=== PATIENT | male | born 1980 | race Caucasian/White ===

== ENCOUNTER 2016-07-27 16:46 | Emergency (ER) | payer SELFPAY ==
--- NOTE | 2016-07-27 18:10 | UC ---
Lower Extremity/Ankle HPI - HPI Summary HPI Summary: left foot and great toe pain started yesterday without any known injury. started suddenly. It is red, painful and swollen adn warm to touch. He has been drinking over the past 2 weeks. also red meat. States his BP is always this high. Here with his friend. Denies fever. He is not on BP meds. His doctor retired. - History of Current Complaint Chief Complaint: UCLowerExtremity Stated Complaint: LEFT FOOT INJURYC Time Seen by Provider: 07/27/16 18:09 - Allergies/Home Medications Allergies/Adverse Reactions: Allergies Allergy/AdvReac Type Severity Reaction Status Date / Time Codeine Allergy Intermediate Swelling Verified 07/27/16 17:09 PMH/Surg Hx/FS Hx/Imm Hx Previously Healthy: Yes Endocrine History Of: Denies: Diabetes, Thyroid Disease Cardiovascular History Of: Denies: Cardiac Disorders, Hypertension, Pacemaker/ICD Respiratory History Of: Reports: Asthma Denies: COPD GI/ History Of: Denies: Ulcer - Surgical History Surgical History: Yes Surgery Procedure, Year, and Place: Appy 1986. left knee 1999 - Family History Known Family History: Positive: Cardiac Disease, Diabetes - Social History Alcohol Use: Occasionally Substance Use Type: None Substance Use Comment - Amount & Last Used: Unidentified mushrooms Smoking Status (MU): Former Smoker Type: Cigarettes, Smokeless Tobacco Amount Used/How Often: chews 1 can a week Have You Smoked in the Last Year: No When Did the Patient Quit Smoking/Using Tobacco: cigarettes June 24, 2012 - Immunization History Most Recent Tetanus Shot: 2012 Review of Systems Constitutional: Negative Skin: Negative Eyes: Negative ENT: Negative Respiratory: Negative Cardiovascular: Negative Gastrointestinal: Negative Genitourinary: Negative Motor: Other - left great toe pain Neurovascular: Negative Musculoskeletal: Negative Neurological: Negative Psychological: Negative All Other Systems Reviewed And Are Negative: Yes Physical Exam Triage Information Reviewed: Yes Appearance: Well-Appearing, Well-Nourished Vital Signs: Initial Vital Signs Temp 98.1 F 07/27/16 17:03 Pulse 96 07/27/16 17:03 Resp 16 07/27/16 17:03 BP 153/94 07/27/16 17:03 Pulse Ox 98 07/27/16 17:03 Vital Signs Reviewed: Yes Eye Exam: Normal ENT Exam: Normal Neck exam: Normal Respiratory Exam: Normal Respiratory: Positive: Lungs clear, Normal breath sounds Cardiovascular Exam: Normal Cardiovascular: Positive: RRR, No Murmur, Pulses Normal, Brisk Capillary Refill Abdominal Exam: Normal Abdomen Description: Positive: Nontender Musculoskeletal: Positive: Other: - left great toe - red, hot, swollen and tender Neurological Exam: Normal Psychological Exam: Normal Skin Exam: Normal Lower Extremity Course/Dx - Course Course Of Treatment: BP improved on rpt. Avoid nsaids other than today's treatment which is given bc pharmacies are closed and this is best medication for management that we have on formulary here. Discussed that he should be evaluated for BP management. Explained gout and how it should be managed. If he gets frequent attacks, he should consider daily medicine such as a XO inhibitor. - Differential Dx/Diagnosis Differential Diagnosis/HQI/PQRI: Cellulitis, Gout, Infection, Sprain, Strain Provider Diagnoses: left great toe acute gout Discharge - Discharge Plan Condition: Stable Disposition: HOME Prescriptions: Colchicine* [Colcrys*] 0.6 mg PO DAILY #10 tab Patient Education Materials: Gout (ED) Referrals: No Primary Care Phys,NOPCP [Primary Care Provider] - Additional Instructions: You have been given 600mgs ibuprofen here. Colcrys prescription to start tomorrow as we don't have any available here to give you and pharmacies are closed currently. Avoid alcohol and red meat. If you blood pressure is normally > 140/90 as you say that it is, you hae hypertension and should be treated by your primary crae physician for this to avoid complications of uncontrolled hypertension such as strokes, heart attacks, kidney disease, impotence, eye disease amongst others. We have given you a list of primary care physicians to follow up with since you state that your doctor has retired.
[2016-07-27 18:18] VITALS: BP 148/88
[2016-07-27] MEDS ORDERED: Ibuprofen TAB* 600 MG PO ONE (18:24)
== END 2016-07-27 18:37 | disposition home or self-care (01) ==
LOC: UCCORT 16:46
DX: M10.072 Idiopathic gout, left ankle and foot (principal); Z88.5 Allergy status to narcotic agent; F17.220 Nicotine dependence, chewing tobacco, uncomplicated
CPT/HCPCS: 99212; A9270-GY; G0463

== ENCOUNTER 2017-02-07 17:59 | Emergency (ER) | payer OTHER ==
[2017-02-07 19:55] VITALS: BP 199/104
--- NOTE | 2017-03-01 16:29 | UC ---
Estefany Delgado Rebecca, scribed for Michelle Mae DO on 02/07/17 at 1919 . Abdominal Pain Male HPI - HPI Summary HPI Summary: Pt is a 39 y/o M who presents to [facility] c/o periumbilical abdominal pain. Pain has been intermittent since 2 months ago. Today he bent over and lifted something up which made the pain significantly worse. Currently, pain is moderate, ranked 6/10. Treated with 1000 mg Ibuprofen today at 1200 and again at 1400. Sx aggravated by palpation, turning to the left and eating, alleviated by nothing. Additionally c/o vomiting secondary to pain and diarrhea. Notes that the region of pain, superior to the navel, is soft, starting about 1 month ago. Denies fever, chills, diaphoresis, CP, SOB and rash. Pt presents today due to concerns of hernia. Last ate at about 1900. - History of Current Complaint Chief Complaint: UCAbdominalPain Stated Complaint: SORE STOMACH Time Seen by Provider: 02/07/17 19:10 Hx Obtained From: Patient Onset/Duration: Lasting Weeks, Still Present Severity Currently: Moderate Pain Intensity: 6 Pain Scale Used: 0-10 Numeric Location: Other - Periumbilical Aggravating Factor(s): Food, Other - Turning to the left, palpation Alleviating Factor(s): Nothing Associated Signs And Symptoms: Positive: Vomiting, Diarrhea - Allergies/Home Medications Allergies/Adverse Reactions: Allergies Allergy/AdvReac Type Severity Reaction Status Date / Time Codeine Allergy Intermediate Swelling Verified 02/07/17 18:34 Home Medications: Home Medications Ibuprofen TAB* [Advil TAB*] 1,000 mg PO PRN 02/07/17 [History] PMH/Surg Hx/FS Hx/Imm Hx - Additional Past Medical History Additional PMH: NEGATIVE: DM, COPD, HTN Respiratory History: Asthma - Surgical History Surgical History: Yes Surgery Procedure, Year, and Place: Appy 1986. left knee 1999 - Family History Known Family History: Positive: Cardiac Disease, Diabetes, Other - unable to obtain information due to patient distress and AMS - Social History Alcohol Use: None Substance Use Type: None Substance Use Comment - Amount & Last Used: Unidentified mushrooms Smoking Status (MU): Former Smoker Type: Cigarettes, Smokeless Tobacco Amount Used/How Often: chews 1 can a week Have You Smoked in the Last Year: No When Did the Patient Quit Smoking/Using Tobacco: cigarettes June 24, 2012 - Immunization History Most Recent Tetanus Shot: 2012 Review of Systems Constitutional: Negative Skin: Negative Eyes: Negative ENT: Negative Respiratory: Negative Cardiovascular: Negative Gastrointestinal: Abdominal Pain - Periumbilical, Vomiting - secondary to pain, Diarrhea, Other - Soft spot above the navel Genitourinary: Negative Motor: Negative Neurovascular: Negative Musculoskeletal: Negative Neurological: Negative Psychological: Negative All Other Systems Reviewed And Are Negative: Yes - Comments Additional Review of Systems Comments: NEGATIVE: Fever, chills, diaphoresis, CP, SOB and rash Physical Exam Triage Information Reviewed: Yes Vital Signs: Initial Vital Signs Temp 99.3 F 02/07/17 18:29 Pulse 99 02/07/17 18:29 Resp 20 02/07/17 18:29 BP 153/90 02/07/17 18:29 Pulse Ox 97 02/07/17 18:29 Vital Signs Reviewed: Yes - Additional Comments Appearance: Well-Appearing, Obese, Malodorous, Moderate pain distress that is worsened by upright posture and alleviated by reclining Eyes: Conjunctiva clear, no discharge ENT: Hearing grossly normal, no muffled/hoarse voice. Neck: Normal, Supple Respiratory/Lung Sounds: Lungs clear, Normal breath sounds, No respiratory distress, No accessory muscle use Cardiovascular: Tachycardic, No murmur Abdomen: Pt has a 3 cm pouch protruding from his navel that is soft and tender, Soft, no guarding, not distended Bowel Sounds: Present Musculoskeletal: Normal Neurological: Alert, muscle tone normal Psychiatric: Normal, age appropriate behavior Skin: Normal, Warm, Dry, Normal color Abd Pain Male Course/Dx - Course Course Of Treatment: Pt is a 39 y/o M who presents to [facility] c/o periumbilical abdominal pain, intermittent for 2 months, significantly worse today after bending down and lifting something. Currently, pain is moderate, ranked 6/10. Treated with 1000 mg Ibuprofen today at 1200 and again at 1400. Sx aggravated by palpation, turning to the left and eating. Additionally c/o vomiting secondary to pain and diarrhea. Notes that the region of pain, superior to the navel, is soft, starting about 1 month ago. Denies fever, chills, diaphoresis, CP, SOB and rash. Pt presents today due to concerns of hernia. Last ate at about 1900. Pt will be transferred to [facility] ED by [place] [facility] for further workup and management of symptoms with Dx of hernia. Pt understands and agrees. Elevated BP noted. - Differential Dx/Clinical Impression Provider Diagnoses: Hernia. Elevated blood pressure without diagnosis of hypertension. Discharge - Discharge Plan Condition: Stable Disposition: TRANS HIGHER LVL OF CARE FAC Referrals: No Primary Care Phys,NOPCP [Primary Care Provider] - The documentation as recorded by the Estefany rasheed Rebecca accurately reflects the service I personally performed and the decisions made by , Michelle Mae DO.
== END 2017-02-07 19:45 | disposition short-term general hospital (02) ==
LOC: UCEAST 17:59
DX: K42.9 Umbilical hernia without obstruction or gangrene (principal); K40.90 Unilateral inguinal hernia, without obstruction or gangrene, not specified as recurrent; K76.0 Fatty (change of) liver, not elsewhere classified; R16.0 Hepatomegaly, not elsewhere classified; R11.10 Vomiting, unspecified; R19.7 Diarrhea, unspecified; J45.909 Unspecified asthma, uncomplicated; Z88.5 Allergy status to narcotic agent; F17.220 Nicotine dependence, chewing tobacco, uncomplicated
CPT/HCPCS: 99213; G0463

== ENCOUNTER → 2017-02-07 20:05 | Emergency (ER) | payer OTHER ==
[~2017-02-07 20:05] MED LIST: Iohexol 300* (CONTRAST) 10 ML SDV IV ONE; Morphine INJ* 4 MG/ML 1 ML CARPUJECT IV ONE; NS 0.9% 1000 ML* 1,000 ML IV ONE; Ondansetron INJ* 2 MG/ML VIAL IV ONE; oxyCODONE/Acetamin 5/325 MG* TAB PO ONE
[2017-02-07 20:14] VITALS: BP 172/96
[2017-02-07 20:59] LABS: Hematocrit 43 % (42-52); Hemoglobin 14.5 g/dl (14.0-18.0); Mean Corpuscular HGB Conc 34 g/dl (31-36); Mean Corpuscular Hemoglobin 28 pg (27-31); Mean Corpuscular Volume 83 fL (80-94); Mean Platelet Volume 8 um3 (7.4-10.4); Red Blood Count 5.18 10^6/ul (4.0-5.4); Red Cell Distribution Width 13 % (10.5-15); White Blood Count 7.7 10^3/ul (3.5-10.8)
[2017-02-07 21:15] LABS: Albumin 4.1 g/dL (3.2-5.2); BUN/Creatinine Ratio 18.6 (8-20); C Reactive Protein 4.11 mg/L (< 5.00); Calcium 9.1 mg/dL (8.6-10.3); EGFR African American 112.6 (>60); EGFR Non-African American 87.6 (>60); Globulin 2.9 g/dL (2-4); Potassium 3.7 mmol/L (3.5-5.0); Total Bilirubin 0.3 mg/dL (0.2-1.0)
--- NOTE | 2017-02-08 07:44 | RAD ---
CLINICAL HISTORY: Periumbilical pain, hernia pain COMPARISON: None TECHNIQUE: Multiple contiguous axial CT scans were obtained of the abdomen and pelvis after the administration of intravenous contrast. Coronal and sagittal multiplanar reformations are submitted for review. Oral contrast was administered. Delayed images were obtained through the abdomen and pelvis. FINDINGS: LUNG BASES: The lung bases are clear. LIVER: The liver is diffusely low in attenuation compared to the spleen. There are no focal hepatic parenchymal masses. The liver measures 20.8 cm in long axis. BILE DUCTS: There is no intrahepatic or extrahepatic biliary dilatation. GALLBLADDER: The gallbladder is normal, without pericholecystic inflammatory change. PANCREAS: The pancreas is normal, without mass or ductal dilatation. SPLEEN: Normal in size and appearance. UPPER GI TRACT: Evaluation of the gastrointestinal tract is limited by incomplete gastric distention. The upper GI tract is unremarkable. SMALL BOWEL AND MESENTERY: The small bowel is normal in contour, course, and caliber. There is no obstruction or dilatation. COLON: The colon is normal in contour, course, caliber. There is no pericolonic inflammatory change. The appendix is not clearly visualized. There is no appreciable inflammatory change in the right lower quadrant. ADRENALS: Normal bilaterally. KIDNEYS: The kidneys are normal in shape, size, contour, and axis. There is no hydronephrosis or nephrolithiasis. BLADDER: The bladder is incompletely distended but is grossly normal. PELVIC ORGANS: The prostate gland is normal. The seminal vesicles are symmetric. AORTA: The aorta is normal. IVC: Unremarkable LYMPH NODES: There is no lymphadenopathy by size criteria. ABDOMINAL WALL: There is a fat-containing umbilical hernia. There is a small fat-containing left inguinal hernia. BONES AND SOFT TISSUES: There are mild diffuse degenerative changes. OTHER: None IMPRESSION: 1. FAT-CONTAINING UMBILICAL HERNIA. 2. SMALL FAT-CONTAINING LEFT INGUINAL HERNIA. 3. HEPATOMEGALY WITH FATTY INFILTRATION OF THE LIVER
--- NOTE | 2017-02-13 12:49 | ED ---
Jovanni Delgado Nilda, scribed for Michael Russell MD on 02/08/17 at 0012 . Abdominal Pain/Male - HPI Summary HPI Summary: Patient is a 36 y.o. M BIBA presenting to [facility] with a chief complain of intermittent abdominal pain from umbilical hernia that began this morning. Pain rated 6/10 in severity. Symptoms aggravated by movement and palpation. Symptoms alleviated with pain medication given in ED. - History of Current Complaint Chief Complaint: EDAbdPain Stated Complaint: XFER FROM EAST Time Seen by Provider: 02/07/17 20:29 Hx Obtained From: Patient Timing: Intermittent Severity Currently: Moderate Pain Intensity: 6 Pain Scale Used: 0-10 Numeric Location: Umbilical Aggravating Factor(s): Movement, Other: - palpation Alleviating Factor(s): Medications - Allergies/Home Medications Allergies/Adverse Reactions: Allergies Allergy/AdvReac Type Severity Reaction Status Date / Time Codeine Allergy Intermediate Swelling Verified 02/07/17 18:34 PMH/Surg Hx/FS Hx/Imm Hx Endocrine/Hematology History: Denies: Hx Diabetes, Hx Thyroid Disease Cardiovascular History: Denies: Hx Hypertension, Hx Pacemaker/ICD Respiratory History: Reports: Hx Asthma Denies: Hx Chronic Obstructive Pulmonary Disease (COPD) GI History: Denies: Hx Ulcer Sensory History: Reports: Hx Contacts or Glasses Denies: Hx Hearing Aid Opthamlomology History: Reports: Hx Contacts or Glasses Psychiatric History: Denies: Hx Panic Disorder - Surgical History Surgery Procedure, Year, and Place: Appy 1986. left knee 1999 - Immunization History Date of Tetanus Vaccine: unknown Date of Influenza Vaccine: Infectious Disease History: No Infectious Disease History: Denies: Hx Clostridium Difficile, Hx Hepatitis, Hx Human Immunodeficiency Virus (HIV), Hx of Known/Suspected MRSA, Hx Shingles, Hx Tuberculosis, Hx Known/ Suspected VRE, Hx Known/Suspected VRSA, History Other Infectious Disease, Traveled Outside the [place] in Last 30 Days - Family History Known Family History: Positive: Cardiac Disease, Hypertension, Diabetes, Other - unable to obtain information due to patient distress and AMS - Social History Alcohol Use: None Substance Use Type: Reports: None Substance Use Comment - Amount & Last Used: Unidentified mushrooms Hx Tobacco Use: Yes Smoking Status (MU): Former Smoker Type: Cigarettes, Smokeless Tobacco Amount Used/How Often: chews 1 can a week Have You Smoked in the Last Year: No Review of Systems Negative: Fever, Chills Negative: Erythema Negative: Sore Throat Negative: Chest Pain Negative: Shortness Of Breath, Cough Positive: Abdominal Pain, Other - hernia. Negative: Vomiting, Nausea Negative: dysuria, hematuria Negative: Myalgia, Edema Negative: Rash Neurological: Other - negative dizziness All Other Systems Reviewed And Are Negative: Yes Physical Exam - Summary Physical Exam Summary: Constitutional: Well-developed, Well-nourished, Alert. Skin: Warm, Dry HENT: Normocephalic; Atraumatic Eyes: Conjunctiva normal Neck: Musculoskeletal ROM normal neck. (-) JVD, (-) Stridor, (-) Tracheal deviation Cardio: Rhythm regular, rate normal, Heart sounds normal; Intact distal pulses; The pedal pulses are 2+ and symmetric. Radial pulses are 2+ and symmetric. (-) Murmur Pulmonary/Chest wall: Effort normal. (-) Respiratory distress, (-) Wheezes, (-) Rales Abd: Morbidly obese belly, umbilical hernia that was protuberant. Soft. Mildly tender. No skin changes. Musculoskeletal: (-) Edema Lymph: (-) Cervical adenopathy Neuro: Alert, Oriented x3 Psych: Mood and affect Normal Triage Information Reviewed: Yes Vital Signs On Initial Exam: Initial Vitals Temp Pulse Resp BP Pulse Ox 99.3 F 102 17 170/96 98 02/07/17 20:07 02/07/17 20:07 02/07/17 20:07 02/07/17 20:07 02/07/17 20:07 Vital Signs Reviewed: Yes - Dierks Coma Scale Coma Scale Total: 15 Diagnostics - Vital Signs Vital Signs Temp Pulse Resp BP Pulse Ox 02/07/17 21:15 16 02/07/17 20:13 172/96 02/07/17 20:12 170/96 02/07/17 20:07 99.3 F 102 17 170/96 98 - Laboratory Lab Results: Lab Results 02/07/17 02/07/17 02/07/17 Range/Units 20:46 20:46 20:46 WBC 7.7 (3.5-10.8) 10^3/ul RBC 5.18 (4.0-5.4) 10^6/ul Hgb 14.5 (14.0-18.0) g/dl Hct 43 (42-52) % MCV 83 (80-94) fL MCH 28 (27-31) pg MCHC 34 (31-36) g/dl RDW 13 (10.5-15) % Plt Count 219 (150-450) 10^3/ul MPV 8 (7.4-10.4) um3 Neut % (Auto) 48.5 (38-83) % Lymph % (Auto) 39.8 (25-47) % Mingo % (Auto) 7.7 (1-9) % Eos % (Auto) 3.4 (0-6) % Baso % (Auto) 0.6 (0-2) % Absolute Neuts (auto) 3.7 (1.5-7.7) 10^3/ul Absolute Lymphs (auto) 3.0 (1.0-4.8) 10^3/ul Absolute Monos (auto) 0.6 (0-0.8) 10^3/ul Absolute Eos (auto) 0.3 (0-0.6) 10^3/ul Absolute Basos (auto) 0 (0-0.2) 10^3/ul Absolute Nucleated RBC 0 10^3/ul Nucleated RBC % 0.1 Sodium 135 (133-145) mmol/L Potassium 3.7 (3.5-5.0) mmol/L Chloride 102 (101-111) mmol/L Carbon Dioxide 25 (22-32) mmol/L Anion Gap 8 (2-11) mmol/L BUN 18 (6-24) mg/dL Creatinine 0.97 (0.67-1.17) mg/dL Est GFR ( Amer) 112.6 (>60) Est GFR (Non-Af Amer) 87.6 (>60) BUN/Creatinine Ratio 18.6 (8-20) Glucose 183 H (70-100) mg/dL Lactic Acid 1.7 (0.5-2.0) mmol/L Calcium 9.1 (8.6-10.3) mg/dL Total Bilirubin 0.30 (0.2-1.0) mg/dL AST 26 (13-39) U/L ALT 40 (7-52) U/L Alkaline Phosphatase 57 (34-104) U/L C-Reactive Protein 4.11 (< 5.00) mg/L Total Protein 7.0 (6.4-8.9) g/dL Albumin 4.1 (3.2-5.2) g/dL Globulin 2.9 (2-4) g/dL Albumin/Globulin Ratio 1.4 (1-3) Lipase 38 (11.0-82.0) U/L Result Diagrams: 02/07/17 20:46 02/07/17 20:46 Lab Statement: Any lab studies that have been ordered have been reviewed, and results considered in the medical decision making process. - CT Abdomen/Pelvis CT Interpretation Completed By: Radiologist - CT Abdominal/Pelvis reveals no bowel obstruction, colitis, diverticulitis, free fluid or free air. Appendix not seen. No pericecal inflammation to suggest acute appendicitis. Unremarkable pancreas, kidneys, and gallbladder. Hepatomegaly and steatosis. Small umbilical and left inguinal region hernias containing fat but no herniated bowel. ED physician reviewed report and agrees. Abdominal Pain Fem Course/Dx - Course Course Of Treatment: Patient is a 36 y.o. M BIBA presenting to [facility] with a chief complain of intermittent abdominal pain from umbilical hernia that began this morning. Pain rated 6/10 in severity. Symptoms aggravated by movement and palpation. Symptoms alleviated with pain medication given in ED. [23:37]ED discussed patient with Dr. Stahl (Shantanu) who recommends surgery this week and follow up with patient on 02/09/17. Patient has fat containing hernia which the ED Physician cannot presently reduce. CT Abdominal/Pelvis per radiologist reveals no bowel obstruction, colitis, diverticulitis, free fluid or free air. Appendix not seen. No pericecal inflammation to suggest acute appendicitis. Unremarkable pancreas, kidneys, and gallbladder. Hepatomegaly and steatosis. Small umbilical and left inguinal region hernias containing fat but no herniated bowel. ED physician reviewed report and agrees. Patient is discharged with a diagnosis of umbilical hernia. Patient will follow up with Dr. Stahl on Thursday. Patient understands and agrees with plan. - Diagnoses Provider Diagnoses: Umbilical hernia - Provider Notifications Discussed Care Of Patient With: Nestor Fournier Time Discussed With Above Provider: 23:37 Instructed by Provider To: Other - ED discussed patient with Dr. Stahl (Shantanu) who recommends surgery this week and follow up with patient on 02/09/17. Patient has fat containing hernia which the ED Physician cannot presently reduce. Discharge - Discharge Plan Condition: Stable Disposition: HOME Prescriptions: oxyCODONE/Acetamin 5/325 MG* [Percocet 5/325 TAB*] 2 tab PO Q4H PRN #16 tab MDD 8 PRN Reason: Pain - Moderate To Severe Patient Education Materials: Umbilical Hernia (ED) Referrals: Nestor Stahl MD [Medical Doctor] - 02/09/17 Additional Instructions: RETURN TO THE EMERGENCY DEPARTMENT FOR CHANGING OR WORSENING SYMPTOMS. The documentation as recorded by the Jovanni rasheed Nilda accurately reflects the service I personally performed and the decisions made by Drew celestin Jerry, MD.
== END | disposition home or self-care (01) ==
LOC: ED 20:05
DX: K42.9 Umbilical hernia without obstruction or gangrene (principal); R10.9 Unspecified abdominal pain; Z87.891 Personal history of nicotine dependence
CPT/HCPCS: 36415; 74177; 80053; 83605; 83690; 85025; 86140; 96374; 96375; 99282; A9270-GY; J2270; J2405; Q9967

== ENCOUNTER 2017-02-11 06:08 | Day surgery (SDC) | payer OTHER ==
[~2017-02-11 06:08] MED LIST changes: +Acetaminophen TAB* 325 MG PO ONE; +Buffered Lidocaine 0.9% SYRIN* 5 ML/SYR SYRINGE INTRADERM ONE; +Dexamethasone IV* 4 MG/ML 1 ML (4 MG) IV SLOW PU ONE; -Iohexol 300* (CONTRAST) 10 ML SDV IV ONE; +Metoclopramide IV* 5 MG/ML 2 ML VIAL IV SLOW PU ONE; -Morphine INJ* 4 MG/ML 1 ML CARPUJECT IV ONE; -NS 0.9% 1000 ML* 1,000 ML IV ONE; -Ondansetron INJ* 2 MG/ML VIAL IV ONE; -oxyCODONE/Acetamin 5/325 MG* TAB PO ONE
[2017-02-11] MEDS ORDERED: Acetaminophen TAB* 325 MG ONE (06:48)
[2017-02-11] MEDS ORDERED: Buffered Lidocaine 0.9% SYRIN* 5 ML/SYR SYRINGE ONE (06:48)
[2017-02-11] MEDS ORDERED: Metoclopramide IV* 5 MG/ML 2 ML VIAL ONE (06:48)
[2017-02-11] MEDS ORDERED: Dexamethasone IV* 4 MG/ML 1 ML (4 MG) ONE (06:48)
[2017-02-11] MEDS ORDERED: KETAMINE HCL* 50 MG/ML 10 ML VIAL ONE (06:52)
[2017-02-11] MEDS ORDERED: Midazolam* 1 MG/ML 5 ML VIAL (5 MG) ONE (06:52)
[2017-02-11] MEDS ORDERED: fentaNYL* 50 MCG/ML 2 ML VIAL (100 MCG VIAL) ONE ×2 (06:52→12:00)
[2017-02-11] MEDS ORDERED: Bupivacaine 0.5% SDV PF* 30 ML VIAL ONE (07:13)
[2017-02-11] MEDS ORDERED: Lidocaine 1% INJ* 10 MG/ML 30 ML SDV ONE (07:13)
[2017-02-11] MEDS ORDERED: Lidocaine 1% MPF wEPI 200,000* 30 ML SDV ONE (07:17)
[2017-02-11] MEDS ORDERED: HYDROmorphone INJ* 1 MG/ML CARPUJECT SYRINGE IV PRN (07:48)
[2017-02-11] MEDS ORDERED: Ibuprofen TAB* 600 MG PO PRN (07:48)
[2017-02-11] MEDS ORDERED: Ondansetron INJ* 2 MG/ML VIAL IV PRN (07:48)
[2017-02-11] MEDS ORDERED: ceFAZolin 2 GM PREMIX (*) 50 ML IVPB ONE (08:27)
[2017-02-11] MEDS ORDERED: ceFAZolin 1 GM ADVAN(*) 1 GM ADDV.VIAL IVPB ONE (08:27)
[2017-02-11] MEDS ORDERED: Midazolam* 1 MG/ML 2 ML VIAL (2 MG) ONE (09:49)
[2017-02-11] MEDS ORDERED: oxyCODONE TAB* 5 MG TAB ONE ×2 (10:19→12:00)
[2017-02-11] MEDS: oxyCODONE TAB* 5 MG TAB PO PRN ×2 (10:21→12:02)
[2017-02-11 11:59] VITALS: BP 141/84
[2017-02-11] MEDS: fentaNYL* 50 MCG/ML 2 ML VIAL (100 MCG VIAL) IV PRN ×2 (12:03→12:11)
--- NOTE | 2017-02-21 02:13 | OP ---
DATE OF OPERATION: 02/11/17 - [facility] DATE OF : 80 SURGEON: Mariusz Chung MD FLAKE DRIER: Elida Damico NP ANESTHESIOLOGIST: Dr. Shrestha. ANESTHESIA: Spinal. PRE-OP DIAGNOSIS: Umbilical hernia. POST-OP DIAGNOSIS: Umbilical hernia. OPERATIVE PROCEDURE: Open umbilical hernia repair with mesh. ESTIMATED BLOOD LOSS: Minimal. IV FLUIDS: Crystalloid. SPECIMEN: None. DRAINS: None. COMPLICATIONS: None. COUNTS: Instrument, needle and sponge count correct. DESCRIPTION OF PROCEDURE: The patient was brought to the operating room and placed on the table supine. Sequential compression devices were placed on both lower extremities. He was administered a spinal anesthetic and then positioned supine and his abdomen was prepped and draped in the usual sterile fashion. He received appropriate intravenous antibiotics. Time-out was performed. Local anesthetic was infiltrated into the periumbilical tissues and a curvilinear infraumbilical incision was made encompassing half the circumference of the umbilical region and then the umbilical stalk was elevated off the abdominal wall and incarcerated fat was identified within the umbilical hernia sac, which was subsequently excised and the edges ligated with 2-0 Polysorb ties. The hernia defect measured approximately 2 cm to 2.5 cm and repair was performed with the Bard umbilical hernia mesh using a circular medium size patch, which was placed to the peritoneal cavity and then drawn up through the defect. The mesh was sutured inferiorly and superiorly with interrupted 2-0 braided polyester sutures and then the defect was closed transversely with the same suture in interrupted figure-of- eight fashion. Umbilical stalk was reapproximated with 3-0 Vicryl to the anterior abdominal wall and skin closed with 4-0 Monocryl in subcuticular fashion. Steri- Strips were applied. The patient tolerated the procedure well and was transferred to Recovery in a stable condition. [id number]/[facility] #: [id number] MTDD
== END 2017-02-11 12:49 | disposition home or self-care (01) ==
LOC: OR 06:08
PROVIDERS: ATTEND Surgery
DX: K42.0 Umbilical hernia with obstruction, without gangrene (principal); E66.01 Morbid (severe) obesity due to excess calories; Z68.43 Body mass index [BMI] 50.0-59.9, adult; K40.90 Unilateral inguinal hernia, without obstruction or gangrene, not specified as recurrent; G47.33 Obstructive sleep apnea (adult) (pediatric); Z88.5 Allergy status to narcotic agent; Z87.891 Personal history of nicotine dependence
CPT/HCPCS: A9270-GY; C1781; J0690; J1100; J2001; J2250; J2765; J3010

== ENCOUNTER 2017-05-30 13:38 | Emergency (ER) | payer OTHER ==
[2017-05-30 14:09] VITALS: BP 147/91
[2017-05-30] MEDS ORDERED: Ketorolac INJ* 60 MG/2 ML VIAL IM ONE (15:53)
[2017-05-30] MEDS ORDERED: Cyclobenzaprine TAB* 10 MG PO ONE (15:54)
--- NOTE | 2017-05-30 16:00 | UC ---
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 Timing: Constant Severity Initially: Mild Severity Currently: Moderate Back Pain: Is Discrete @ - R lower back, Radiates To - upper legs Character: Throbbing, Stiffness Aggravating Factor(s): Movement Alleviating Factor(s): Rest, Cold Associated Signs And Symptoms: Negative: Weakness, Numbness, Tingling, Bladder Incontinence, Bowel Incontinence - Risk Factors Cauda Equina Risk Factors: Negative - Allergies/Home Medications Allergies/Adverse Reactions: Allergies Allergy/AdvReac Type Severity Reaction Status Date / Time Codeine Allergy Intermediate Hives Verified 02/11/17 06:55 Home Medications: Home Medications metFORMIN* [Glucophage 1000 MG TAB *] 1,000 mg PO 0800,1700 05/30/17 [History Confirmed 05/30/17] PMH/Surg Hx/FS Hx/Imm Hx Previously Healthy: Yes Endocrine History: Diabetes - Surgical History Surgical History: Yes Surgery Procedure, Year, and Place: APPENDECTOMY 1986 [place]. LEFT KNEE ARTHROSCOPY (REPAIR OF LIGAMENTS) 1999 [place] - Family History Known Family History: Positive: Cardiac Disease, Diabetes, Other - unable to obtain information due to patient distress and AMS - Social History Occupation: Employed Full-time Lives: With Family Alcohol Use: None Substance Use Type: None Substance Use Comment - Amount & Last Used: Unidentified mushrooms Smoking Status (MU): Former Smoker Type: Cigarettes Amount Used/How Often: 1 PPD FOR 16 YRS Length of Time of Smoking/Using Tobacco: 16 YRS Have You Smoked in the Last Year: No When Did the Patient Quit Smoking/Using Tobacco: 2012 - Immunization History Most Recent Tetanus Shot: 2013 Review of Systems Constitutional: Negative Respiratory: Negative Cardiovascular: Negative Psychological: Negative Is Patient Immunocompromised?: No All Other Systems Reviewed And Are Negative: Yes Physical Exam Triage Information Reviewed: Yes Appearance: Well-Appearing, Obese Vital Signs: Initial Vital Signs Temp 99.0 F 05/30/17 14:06 Pulse 105 05/30/17 14:06 Resp 18 05/30/17 14:06 BP 147/91 05/30/17 14:06 Pulse Ox 98 05/30/17 14:06 Vital Signs Reviewed: Yes Respiratory Exam: Normal Cardiovascular Exam: Normal Musculoskeletal: Positive: ROM Limited @ - low back Neurological Exam: Normal Psychological Exam: Normal Skin: Negative: rashes Back Pain Course/Dx - Differential Dx/Diagnosis Differential Diagnosis/HQI/PQRI: Cauda Equina Syndrome, Herniated Disc, Strain, Sprain Provider Diagnoses: low back strain Discharge - Discharge Plan Condition: Stable Disposition: HOME Prescriptions: Cyclobenzaprine TAB* [Flexeril 10 MG TAB*] 10 mg PO TID PRN #15 tab PRN Reason: Spasms - Back Patient Education Materials: Low Back Strain (ED) Forms: *Work Release Referrals: No Primary Care Phys,NOPCP [Primary Care Provider] - 2 Days (Dang if no better 2-3 days) Additional Instructions: use ibuprofen 600mg every 6 hours as needed for pain (over the counter) use muscle relaxer as prescribed rest apply heat or cold to area of pain
== END 2017-05-30 16:20 | disposition home or self-care (01) ==
LOC: UCEAST 13:38
DX: S39.012A Strain of muscle, fascia and tendon of lower back, initial encounter (principal); X58.XXXA Exposure to other specified factors, initial encounter; Y93.89 Activity, other specified; Y92.9 Unspecified place or not applicable; Y99.0 Civilian activity done for income or pay; Z88.5 Allergy status to narcotic agent; E11.9 Type 2 diabetes mellitus without complications; Z79.84 Long term (current) use of oral hypoglycemic drugs; E66.9 Obesity, unspecified; Z87.891 Personal history of nicotine dependence
CPT/HCPCS: 96372; 99212; A9270-GY; G0463; J1885

== ENCOUNTER 2017-07-27 11:07 | Emergency (ER) | payer OTHER ==
[2017-07-27] MEDS ORDERED: Naproxen TAB* 250 MG PO ONE (12:04)
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
--- NOTE | 2017-07-27 12:57 | RAD ---
INDICATION: Left wrist injury. TECHNIQUE: 3 views of the left wrist were obtained. FINDINGS: The bones are in normal alignment. No fracture is seen. Joint spaces appear maintained. IMPRESSION: NO EVIDENCE FOR FRACTURE, IF THE PATIENT'S SYMPTOMS PERSIST RECOMMEND FOLLOW-UP IMAGING.
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
[2017-07-27 14:44] VITALS: BP 150/99
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
--- NOTE | 2017-07-27 14:52 | RAD ---
Indication: Back pain, question compression fracture on prior x-ray. CT of the thoracic spine was obtained in the axial plane. Sagittal and coronal reconstructed images were obtained. The vertebral bodies appear normal in height. The area in question at the inferior anterior endplate of T8 demonstrates a Schmorl's node. There is no evidence of compression fracture. There is disc space narrowing with mild ventral osteophyte formation at T7-T8, T8-T9, T9-T10 and T10-T11. Degenerative disc disease at T3-T4 is also present. IMPRESSION: No fracture is noted. Degenerative disc disease at T8-T9 in the area of prior irregularity in the thoracic spine. Multilevel degenerative disc disease is noted.
== END 2017-07-27 15:23 | disposition home or self-care (01) ==
LOC: UCEAST 11:07
DX: M54.6 Pain in thoracic spine (principal); S63.502A Unspecified sprain of left wrist, initial encounter; V43.52XA Car driver injured in collision with other type car in traffic accident, initial encounter; Y93.89 Activity, other specified; Y92.410 Unspecified street and highway as the place of occurrence of the external cause; R03.0 Elevated blood-pressure reading, without diagnosis of hypertension; Z88.5 Allergy status to narcotic agent; Z87.891 Personal history of nicotine dependence
CPT/HCPCS: 72070; 72110; 72125; 72128; 99213; A9270-GY; G0463

== ENCOUNTER 2017-09-07 19:18 | Emergency (ER) | payer OTHER ==
--- OUTSIDE RECORDS SUMMARY | 2017-09-07 20:59 | XMS REPORT ---
:1980 External Reference #:[id number] Author Organization [employer] Address [address] [address] Phone [phone] Care Team Providers Name Role Phone Patient's Choice Primary Care Physician Unavailable Payers Type Date Identification Numbers Payment Provider Subscriber Commercial Policy Number: [id number] Gurmeet Delgado PayID: [id number] [address] [place] [address] Workers Compensation Onset: 2017 Policy Number: Chandana Tovar [id number] Danny PayID: [id number] [address] [place] [address] Problems Date Description Provider Status Onset: 08/11/2017 Low back pain Peytonsilmark Fowler MD Active Family History Date Family Member(s) Problem(s) Comments General Heart Disease General Diabetes Social History Type Date Description Comments Lives With Spouse 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 ETOH Use Occasionally consumes alcohol Smoking Patient is a former smoker Recreational Drug Use Denies Drug Use Daily Caffeine Does Not Consume Caffeine Exercise Type/Frequency Exercises regularly Allergies, Adverse Reactions, Alerts Date Description Reaction Status Severity Comments 06/21/2014 Codeine swelling active 06/21/2014 NKDA inactive Medications Medication Date Status Form Strength Qnty SIG Indications Ordering Provider Naproxen Active Tablets 500mg Take One Unknown 000 Tablet By Mouth Twice A Day No Active Hx Unknown Medications 018 - 018 Tramadol Hx Tablets 37.5-325mg 20tabs 1 tab by Mirlande Bran/ 018 - mouth Nerissa Sanford Acetaminophen every 6 018 hours as needed pain Sulfamethoxazo Hx Tablets 800-160mg 20tabs 1 by K42.9 Eren martel/Trimethopri 017 mouth maria eugenia Aburto DS twice a M.D. day Ibuprofen Hx Tablets 600mg 20tabs 1 by K42.9 Memo S. 017 mouth Kenia, every 6 MD hours as needed pain Naprosyn Hx Tablets 500mg 60tabs twice Mikhail 015 daily Ben, with M.D. food as needed Morphine Hx Tablets 15mg 1 by Unknown Sulfate 000 mouth twice a day Tramadol HCL Hx Tablets 50mg four Unknown 000 times a day as needed Oxycodone-Acet Hx Tablets 5-325mg 1-2 tabs Unknown aminophen 000 by mouth every 4-6 hours as needed for pain Allopurinol Hx Tablets 100mg Clifford Jiménez 000 - J, D.O. 018 Vitamin D3 Hx Capsules 1000Unit Unknown High Potency 000 - 018 Oxycodone-Acet Hx Tablets 5-325mg Clifford Jiménez aminophen 000 - J, D.O. 018 Medications Administered in Office Medication Date Status Form Strength Qnty SIG Indications Ordering Provider Depomedrol Administered Injection Denise 80MG 015 DAVID Clark Vital Signs Date Vital Result Comment 09/02/2017 Height 65 inches 5'5" Weight 296.00 lb Heart Rate 76 /min Respiratory Rate 15 /min Pain Level 2 BMI (Body Mass Index) 49.3 kg/m2 08/25/2017 Height 65 inches 5'5" Weight 306.00 lb BP Systolic Sitting 150 mmHg lg BP Diastolic Sitting 68 mmHg lg Pain Level 5 BMI (Body Mass Index) 50.9 kg/m2 08/11/2017 Height 65 inches 5'5" Weight 306.00 lb Heart Rate 78 /min BP Systolic Sitting 130 mmHg BP Diastolic Sitting 88 mmHg Pain Level 4 BMI (Body Mass Index) 50.9 kg/m2 07/30/2017 Height 65 inches 5'5" Weight 306.00 lb Heart Rate 88 /min BP Systolic 146 mmHg BP Diastolic 82 mmHg Respiratory Rate 18 /min Body Temperature 98.4 F Pain Level 7 BMI (Body Mass Index) 50.9 kg/m2 2017 Heart Rate 62 /min Respiratory Rate 20 /min Body Temperature 98.3 F 02/19/2017 Height 65 inches 5'5" Weight 319.00 lb Heart Rate 76 /min BP Systolic 126 mmHg BP Diastolic 80 mmHg Respiratory Rate 20 /min Body Temperature 98.2 F BMI (Body Mass Index) 53.1 kg/m2 02/16/2017 Heart Rate 72 /min Respiratory Rate 20 /min Body Temperature 98.3 F 02/13/2017 Heart Rate 90 /min Respiratory Rate 20 /min Body Temperature 98.7 F 02/09/2017 Height 65 inches 5'5" Weight 323.00 lb Heart Rate 84 /min BP Systolic 150 mmHg BP Diastolic 90 mmHg Respiratory Rate 24 /min Body Temperature 98.4 F BMI (Body Mass Index) 53.7 kg/m2 08/10/2014 Height 65 inches 5'5" Weight 260.00 lb Body Temperature 98.1 F Pain Level 0 BMI (Body Mass Index) 43.3 kg/m2 08/04/2014 Height 65 inches 5'5" Weight 260.00 lb Heart Rate 98 /min BP Systolic Sitting 122 mmHg BP Diastolic Sitting 98 mmHg Pain Level 6 BMI (Body Mass Index) 43.3 kg/m2 07/18/2014 Height 65 inches 5'5" Weight 260.00 lb Pain Level 6 BMI (Body Mass Index) 43.3 kg/m2 06/21/2014 Height 65 inches 5'5" Weight 260.00 lb Heart Rate 80 /min BP Systolic 150 mmHg BP Diastolic 73 mmHg Pain Level 7 BMI (Body Mass Index) 43.3 kg/m2 Results Description No Information Procedures Date CPT Code Description Status 09/02/201719887 Inject Tendon Sheath Or Ligament Aponeurosis Eg Plantar Completed Fascia 02/11/2017 72227 Repair Hernia Umbilical > 5 Yrs, Reducible Completed 07/18/201425597 Inject/Drain Joint/Bursa Major Completed Encounters Type Date Location Provider CPT E/M Dx Office Visit 08/11/2017 [facility] 23692 M54.5 1:00p Of Neo Fowler MD M54.5 Office Visit 07/30/2017 8:00a [facility] Jocelyne Zamarripa, 67100 M25.532 Of [facility] STANLEY-C Office Visit 02/09/2017 11:30a [facility] [place], [address] K42.9 Of [facility] K40.90 E66.01 Office Visit 01/27/2016 [facility] [address] T62.0x1A garry Colvin II, M.D. Hospitalists E66.01 Office Visit 08/10/2014 3:45p [facility] Denise Clark, 63716 842.01 C.M.A. ANP-C Office Visit 08/04/2014 9:30a [facility] Clark, 11550 842.01 C.M.A. ANP-C Office Visit 07/18/2014 4:15p [facility] Clark, 12712 717.7 C.M.A. ANP-C 719.06 Office Visit 06/21/2014 9:00a [facility] Mikhail Contreras, 93791 719.46 C.MDeny Multani Plan of Care Future Appointment(s):09/21/2017 9:15 am - Mirlande Sanford M.D. at [facility]09/08/2017 10:00 am - Daniel Fowler MD at [facility]09/02/2017 - Mirlande Sanford M.D.M25.532 Pain in left wristFollow up:Follow up: 3 iklawV95.22 Lesion of ulnar nerve, left upper limbM65.832 Other synovitis and tenosynovitis, left forearm
--- OUTSIDE RECORDS SUMMARY | 2017-09-07 20:59 | XMS REPORT ---
:1980 External Reference #:[id number] Author Organization [employer] Address [address] [address] Phone [phone] Care Team Providers Name Role Phone Patient's Choice Primary Care Physician Unavailable Payers Type Date Identification Numbers Payment Provider Subscriber Commercial Policy Number: [id number] Gurmeet Delgado PayID: [id number] [address] [place] [address] Workers Compensation Onset: 2017 Policy Number: Chandana Tovar [id number] Danny PayID: [id number] [address] [place] [address] Problems Date Description Provider Status Onset: 08/11/2017 Low back pain Peytonsilmark Fowler MD Active Family History Date Family Member(s) Problem(s) Comments General Heart Disease General Diabetes Social History Type Date Description Comments Lives With Spouse 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 Working ETOH Use Occasionally [...] Clark Vital Signs Date Vital Result Comment 08/25/2017 Height 65 inches 5'5" Weight 306.00 [...] Information Procedures Date CPT Code Description Status 02/11/2017 85690 Repair Hernia Umbilical > 5 Yrs, Reducible Completed 07/18/2014 63612 Inject/Drain Joint/Bursa Major Completed Encounters Type Date Location Provider CPT E/M Dx Office Visit 07/30/2017 [facility] J[facility]ne Zamarripa, 08893 M25.532 8:00a Of [place] RPA-C Office Visit 02/09/2017 [facility] [place], [address] K42.9 11:30a Of [employer] FACS K40.90 E66.01 Office Visit 01/27/2016 1:27p [facility] [address]2035 T62.0x1A garry Colvin II, M.D. Hospitalists E66.01 Office Visit 08/10/2014 3:45p [facility] Clark, 69538 842.01 [facility] BRADSHAW-C Office Visit 08/04/2014 9:30a [facility] Clark, 37959 842.01 [facility] BRADSHAW-C Office Visit 07/18/2014 4:15p [facility] Clark, 09750 717.7 [facility] BRADSHAW-C 719.06 Office Visit 06/21/2014 9:00a [facility] Mikhail Ben, 38744 719.46 [place] Multani Plan of Care Future Appointment(s):09/08/2017 10:00 am - Daniel Fowler MD at [facility]08/31/2017 11:30 am - Mirlande Sanford M.D. at [facility] [place]08/25/2017 - Daniel Fowler, MDM54.5 Low back painFollow up:Rv in 2 weeks after the MRI
--- OUTSIDE RECORDS SUMMARY | 2017-09-07 20:59 | XMS REPORT ---
:1980 External Reference #:[id number] Author Organization [employer] Address [address] [address] Phone [phone] Care Team Providers Name Role Phone Patient's Choice Primary Care Physician Unavailable Payers Type Date Identification Numbers Payment Provider Subscriber Commercial Policy Number: [id number] Gurmeet Delgado PayID: [id number] [address] [place] [address] Workers Compensation Onset: 2017 Policy Number: Chandana Tovar [id number] Danny PayID: [id number] [address] [place] [address] Problems Date Description Provider Status Onset: 08/11/2017 Low back pain Daniel Fowler MD Active Family History Date Family Member(s) Problem(s) Comments General Heart Disease General Diabetes Social History Type Date Description Comments Lives With Spouse 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 Naproxen Active Tablets 500mg Take One Unknown 000 Tablet By Mouth Twice A Day No Active Hx Unknown Medications 018 - 018 Tramadol Hx Tablets 37.5-325mg 20tabs 1 tab by Mirlandeozzie Bran/ 018 - mouth Nerissa Sanford Acetaminophen every 6 018 hours as needed pain Sulfamethoxazo Hx Tablets 800-160mg 20tabs 1 by K42.9 Eren martel/Trimethopri 017 mouth Lamonte, maria eugenia DS twice a M.D. day Ibuprofen Hx [...] 1000Unit Unknown High Potency 000 - 018 Medications Administered in Office Medication Date Status Form Strength Qnty SIG Indications Ordering Provider Depomedrol Administered Injection Denise 80MG 015 DAVID Clark Vital Signs Date Vital Result Comment 08/11/2017 Height 65 inches 5'5" Weight 306.00 [...] Procedures Date CPT Code Description Status 02/11/2017 17705 Repair Hernia Umbilical > 5 Yrs, Reducible Completed 07/18/2014 27207 Inject/Drain Joint/Bursa Major Completed Encounters Type Date Location Provider CPT E/M Dx Office Visit 02/09/2017 [facility] [place], [address] 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 Hospitalists E66.01 Office Visit 08/10/2014 3:45p [facility] Clark, 53738 842.01 C.M.AAyana ANP-C Office Visit 08/04/2014 9:30a [facility] 93416 842.01 C.MAyanaAAyana ANP-C Office Visit 07/18/2014 4:15p [facility] 83287 717.7 C.M.Ayaz ANP-C 719.06 Office Visit 06/21/2014 9:00a [facility] Mikhail Contreras 08647 719.46 [place] Multani Plan of Care Future Appointment(s):08/25/2017 10:30 am - Daniel Fowler MD at [facility]08/17/2017 9:00 am - Mirlande Sanford M.D. at [facility]az08/31/2017 11:30 am - Mirlande Sanford M.D. at [facility]08/11/2017 - Daniel Fowler, MDM54.5 Low back painFollow up:RV in 1-2 weeks
[2017-09-07 21:07] VITALS: BP 147/79
[2017-09-07] MEDS ORDERED: Cyclobenzaprine TAB* 10 MG PO ONE ×2 (21:19→21:28)
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
== END 2017-09-07 21:33 | disposition home or self-care (01) ==
LOC: UCCORT 19:18
DX: M54.9 Dorsalgia, unspecified (principal); Z88.5 Allergy status to narcotic agent; Z87.891 Personal history of nicotine dependence
CPT/HCPCS: 99212; A9270-GY; G0463

== ENCOUNTER 2018-01-13 09:00 | Emergency (ER) | payer OTHER ==
--- OUTSIDE RECORDS SUMMARY | 2018-01-13 09:09 | XMS REPORT ---
:1980 External Reference #:[id number] Author Organization [facility] Address [address] [place] [address] Phone [phone] Care Team Providers Name Role Phone Calli Dooley PA Primary Care Physician Unavailable Payers Type Date Identification Numbers Payment Provider Subscriber Commercial Policy Number: [id number] Gurmeet Delgado PayID: [id number] [address] [place] [id number] Workers Compensation Onset: 2017 Policy Number: Chandana Tovar [id number] Danny PayID: [id number] [address] [place] [address] Problems Date Description Provider Status Onset: 08/11/2017 Low back pain Daniel Fowler MD Active Onset: 09/08/2017 Osteochondropathy Daniel Fowler MD Active Family History Date Family Member(s) Problem(s) Comments General Heart Disease General Diabetes Social History Type Date Description Comments Lives With Spouse 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 ETOH Use Occasionally consumes alcohol Smoking Patient is a former smoker Recreational Drug Use Denies Drug Use Daily Caffeine Does Not Consume Caffeine Exercise Type/Frequency Exercises regularly Allergies, Adverse Reactions, Alerts Date Description Reaction Status Severity Comments 06/21/2014 Codeine swelling active 06/21/2014 NKDA inactive Medications Medication Date Status Form Strength Qnty SIG Indications Ordering Provider Tylenol /0 Active Tablets 325mg take 2 Unknown 000 tabs as needed every 6 hours for pain/fev er No Active Hx Unknown Medications 018 - 018 Tramadol Hx Tablets 37.5-325mg 20tabs 1 tab by Mirlande Hydrochloride/ 018 - mouth Nerissa [facility] Acetaminophen every 6 018 hours as needed pain Sulfamethoxazo Hx Tablets 800-160mg 20tabs 1 by K42.9 Eren martel/Trimethopri 017 mouth maria eugenia Aburto twice a M.D. day Ibuprofen Hx Tablets [...] Jiménez aminophen 000 - J, D.O. 018 Naproxen Hx Tablets 500mg Take One Unknown 000 - Tablet By Mouth 018 Twice A Day Medications Administered in Office Medication Date Status Form Strength Qnty SIG Indications Ordering Provider Depomedrol Administered Injection Denise 80MG 015 DAVID Clark Vital Signs Date Vital Result Comment 12/28/2017 Height 65 inches 5'5" Weight 296.00 lb BP Systolic Sitting 140 mmHg BP Diastolic Sitting 80 mmHg Pain Level 5 BMI (Body Mass Index) 49.3 kg/m2 09/09/2017 Height 65 inches 5'5" Weight 296.00 lb Heart Rate 82 /min Respiratory Rate 18 /min Pain Level 4 BMI (Body Mass Index) 49.3 kg/m2 09/08/2017 Height 65 inches 5'5" Weight 296.00 lb BP Systolic Standing 130 mmHg BP Diastolic Standing 90 mmHg Pain Level 8 BMI (Body Mass Index) 49.3 kg/m2 09/02/2017 Height 65 inches 5'5" Weight 296.00 [...] BMI (Body Mass Index) 43.3 kg/m2 Results Test Date Test Result H/L Range Note Platelet Count 09/22/2017 Platelet Count 265 10^3/uL 150-450 Mean Platelet Volume 7.8 um3 7.4-10.4 Inr/Protime 09/22/2017 Inr 0.92 0.77-1.02 Laboratory test finding 09/22/2017 Partial Thrombo Time 35.2 seconds 26.0 -36.3 PTT Procedures Date CPT Code Description Status 09/02/201705646 Inject Tendon Sheath Or Ligament Aponeurosis Eg Plantar Completed Fascia 02/11/2017 28599 Repair Hernia Umbilical > 5 Yrs, Reducible Completed 07/18/2014 Inject/Drain Joint/Bursa Major W/O US Completed Encounters Type Date Location Provider CPT E/M Dx Office Visit 09/09/2017 [facility] [address] M65.832 2:30p Iliana Multani Office Visit 09/08/2017 [facility] [address]67[address] M84.88 10:00a Of Neo Fowler MD M54.6 Office Visit 09/02/2017 9:00a [facility] [address]663 M65.832 Of Iliana Multani M25.532 G56.22 G56.22 M65.832 Office Visit 08/25/2017 10:30a [facility] 51278 M54.5 Of Neo Fowler MD M54.6 M54.5 Office Visit 08/11/2017 1:00p [facility] 32350 M54.5 Of Neo Fowler MD M54.5 Office Visit 07/30/2017 8:00a [facility] 26662 M25.532 Of Iliana COLINDRES Office Visit 02/09/2017 11:30a [facility] [place], [address] K42.9 Of [facility] FACS K40.90 E66.01 Office Visit 01/27/2016 1:27p [facility] 11070 T62.0x1A garry Colvin II, M.D. Hospitalists E66.01 Office Visit 08/10/2014 3:45p [facility], 22035 842.01 CDavid ANP-C Office Visit 08/04/2014 9:30a [facility], 63470 842.01 Iliana ANP-C Office Visit 07/18/2014 4:15p [facility], 98159 717.7 C.Meir ANP-C 719.06 Office Visit 06/21/2014 9:00a [facility], 43930 719.46 Iliana Multani Plan of Care Future Appointment(s):03/29/2018 1:30 pm - Daniel Fowler MD at [facility]01/29/2018 1:15 pm - Kel Kim LCSW at [facility] Internal Medicine [facility]
[2018-01-13 09:12] VITALS: BP 151/98
[2018-01-13] MEDS ORDERED: Cyclobenzaprine TAB* 10 MG PO ONE (10:04)
[2018-01-13] MEDS ORDERED: Ketorolac INJ* 60 MG/2 ML VIAL IM ONE (10:04)
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
== END 2018-01-13 10:52 | disposition home or self-care (01) ==
LOC: UCEAST 09:00
DX: M54.9 Dorsalgia, unspecified (principal); M62.830 Muscle spasm of back; Z88.5 Allergy status to narcotic agent; Z87.891 Personal history of nicotine dependence
CPT/HCPCS: 96372; 99212; A9270-GY; G0463; J1885

== ENCOUNTER → 2018-01-13 18:18 | Emergency (ER) | payer OTHER ==
[2018-01-13 18:40] VITALS: BP 142/100
== END | disposition left against medical advice (07) ==
LOC: ED 18:18
DX: M54.9 Dorsalgia, unspecified (principal); Z53.21 Procedure and treatment not carried out due to patient leaving prior to being seen by health care provider

== ENCOUNTER 2018-01-13 19:30 | Emergency (ER) | payer OTHER ==
[2018-01-13 20:00] VITALS: BP 157/99
[2018-01-13] MEDS ORDERED: Bupivacaine 0.25% W/EPI* 50 ML VIAL INJ ONE (20:11)
[2018-01-13] MEDS ORDERED: Morphine VIAL* 10 MG/ML 1 ML VIAL IM ONE (20:20)
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
== END 2018-01-13 20:50 | disposition home or self-care (01) ==
LOC: UCEAST 19:30
DX: M54.6 Pain in thoracic spine (principal); M54.5 Low back pain; Z88.5 Allergy status to narcotic agent; Z87.891 Personal history of nicotine dependence
CPT/HCPCS: 96372; 99211; G0463; J2270

== ENCOUNTER 2018-02-16 10:48 | Emergency (ER) | payer SELFPAY ==
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
[2018-02-16 12:07] VITALS: BP 148/81
--- NOTE | 2018-02-16 12:25 | UC ---
Skin Complaint HPI - HPI Summary HPI Summary: tick bite left thigh x 1 day noted a small tick on his left thigh this morning pt. removed the tick no fever, no chills, no joint pain , no rash - History of Current Complaint Chief Complaint: UCSkin Time Seen by Provider: 02/16/18 12:14 Stated Complaint: SKIN COMPLAINT Hx Obtained From: Patient Onset/Duration: Gradual Onset, Lasting Days - 1, Resolved Onset Severity: Mild Current Severity: Mild Pain Intensity: 4 Location: Other - left thight Character: Redness Aggravating Factor(s): Nothing Alleviating Factor(s): Nothing Associated Signs & Symptoms: Positive: Negative Related History: Insect Bite/Sting - tick bite - Allergy/Home Medications Allergies/Adverse Reactions: Allergies Allergy/AdvReac Type Severity Reaction Status Date / Time codeine Allergy Hives Verified 02/16/18 11:59 Home Medications: Home Medications Cholecalciferol TAB* [Vitamin D TAB*] 1,000 unit PO DAILY 02/16/18 [History Confirmed 02/16/18] Gabapentin CAP(*) [Neurontin 400 mg CAP(*)] 800 mg PO QID 02/16/18 [History Confirmed 02/16/18] Ibuprofen TAB* [Motrin TAB* 800 MG] 800 mg PO Q6H PRN 02/16/18 [History Confirmed 02/16/18] Review of Systems Constitutional: Negative Skin: Rash Eyes: Negative ENT: Negative Respiratory: Negative Cardiovascular: Negative Gastrointestinal: Negative Is Patient Immunocompromised?: No All Other Systems Reviewed And Are Negative: Yes PMH/Surg Hx/FS Hx/Imm Hx Endocrine History: Diabetes - Surgical History Surgical History: Yes Surgery Procedure, Year, and Place: APPENDECTOMY 1986 [place]. LEFT KNEE ARTHROSCOPY (REPAIR OF LIGAMENTS) 1999 [place]. Hernia repair 02/11/17. VASECTOMY 10/19/2017 - Family History Known Family History: Positive: Cardiac Disease, Diabetes, Other - unable to obtain information due to patient distress and AMS - Social History Alcohol Use: Occasionally Substance Use Type: Marijuana Substance Use Comment - Amount & Last Used: Unidentified mushrooms Smoking Status (MU): Former Smoker Type: Cigarettes Amount Used/How Often: 1 PPD FOR 16 YRS Length of Time of Smoking/Using Tobacco: 16 YRS Have You Smoked in the Last Year: No When Did the Patient Quit Smoking/Using Tobacco: 2012 - Immunization History Most Recent Tetanus Shot: 2013 Physical Exam Triage Information Reviewed: Yes Appearance: Well-Appearing, No Pain Distress, Obese Vital Signs: Initial Vital Signs Temp 98.5 F 02/16/18 12:00 Pulse 89 02/16/18 12:00 Resp 22 02/16/18 12:00 BP 148/81 02/16/18 12:00 Pulse Ox 97 02/16/18 12:00 Vital Signs Reviewed: Yes Eyes: Positive: Conjunctiva Clear ENT: Positive: Normal ENT inspection, Hearing grossly normal, Pharynx normal Neck exam: Normal Neck: Positive: Supple, Nontender, No Lymphadenopathy Respiratory: Positive: Chest non-tender, Lungs clear, Normal breath sounds Cardiovascular: Positive: RRR, No Murmur, Pulses Normal Skin: Positive: Other - tick was removed by the pt. for the left upper thigh Course/Dx - Diagnoses Provider Diagnoses: tick bite left thigh Discharge - Sign-Out/Discharge Documenting (check all that apply): Patient Departure All imaging exams completed and their final reports reviewed: No Studies - Discharge Plan Condition: Stable Disposition: HOME Prescriptions: DOXYcycline CAP(*) [DOXYcycline 100MG CAP(*)] 200 mg PO DAILY #2 cap Patient Education Materials: Tick Bite (ED) Referrals: Calli Dooley PA [Primary Care Provider] - If Needed - Billing Disposition and Condition Condition: STABLE Disposition: Home
== END 2018-02-16 12:29 | disposition home or self-care (01) ==
LOC: UCCORT 10:48
DX: T63.481A Toxic effect of venom of other arthropod, accidental (unintentional), initial encounter (principal); Y92.9 Unspecified place or not applicable; Z88.6 Allergy status to analgesic agent; E11.9 Type 2 diabetes mellitus without complications; Z87.891 Personal history of nicotine dependence
CPT/HCPCS: 99212; G0463

== ENCOUNTER 2018-05-26 20:21 | Emergency (ER) | payer OTHER ==
[2018-05-26 20:47] VITALS: BP 168/101
[2018-05-26] MEDS ORDERED: Amoxicillin PO (*) 500 MG CAP PO ONE ×2 (21:21→21:23)
[2018-05-26] MEDS ORDERED: Benzonatate CAP* 100 MG PO ONE ×2 (21:22→21:23)
--- NOTE | 2018-05-26 21:22 | UC ---
Throat Pain/Nasal Mason HPI - HPI Summary HPI Summary: 30-year-old male comes to clinic today with a chief complaint of cough and upper respiratory tract infection symptoms for 3 days. He's had some sputum production no shortness of breath. Patient has some wdxi-tnd-bwwbrzg medications but is not helping with the cough. No fevers or chills. Mild sore throat. Patient also Pepcid a with a chief complaint of right groin pain. Started about a week ago when he was straining get in and out of his truck and had a sudden onset of right lower quadrant inguinal groin pain. The pains worse with movement no fevers or chills is urinating normally. Eating and drinking normally. No vomiting no diarrhea. Normal bowel movements. Patient's had a umbilical hernia repair in the past and also has had his appendix out. He's been told that he does have a hernia in the right inguinal area but at the time when it was discovered there was no need for surgery. Pain does radiate down into the scrotum the patient denies that the pain is originating in the scrotum. - History of Current Complaint Chief Complaint: UCGeneralIllness Stated Complaint: COUGH,CONGESTION,GROIN PAIN Time Seen by Provider: 05/26/18 21:02 Pain Intensity: 0 - Allergies/Home Medications Allergies/Adverse Reactions: Allergies Allergy/AdvReac Type Severity Reaction Status Date / Time codeine Allergy Hives Verified 05/26/18 20:47 Home Medications: Home Medications Pregabalin CAP(*) [Lyrica CAP(*)] 75 mg PO QID PRN 05/26/18 [History Confirmed 05/26/18] PMH/Surg Hx/FS Hx/Imm Hx Previously Healthy: Yes Endocrine History: Diabetes - Surgical History Surgical History: Yes Surgery Procedure, Year, and Place: APPENDECTOMY 1986 [place]. LEFT KNEE ARTHROSCOPY (REPAIR OF LIGAMENTS) 1999 [place]. Hernia repair 02/11/17. VASECTOMY 10/19/2017 - Family History Known Family History: Positive: Cardiac Disease, Diabetes, Other - unable to obtain information due to patient distress and AMS - Social History Alcohol Use: Occasionally Substance Use Type: Marijuana Substance Use Comment - Amount & Last Used: daily Smoking Status (MU): Former Smoker Type: Cigarettes Amount Used/How Often: 1 PPD FOR 16 YRS Length of Time of Smoking/Using Tobacco: 16 YRS Have You Smoked in the Last Year: No When Did the Patient Quit Smoking/Using Tobacco: 2012 - Immunization History Most Recent Tetanus Shot: 2012 Review of Systems All Other Systems Reviewed And Are Negative: Yes Constitutional: Positive: Negative Skin: Positive: Negative Eyes: Positive: Negative ENT: Positive: Sore Throat, Nasal Discharge, Sinus Congestion Respiratory: Positive: Cough Cardiovascular: Positive: Negative Gastrointestinal: Positive: Abdominal Pain. Negative: Vomiting, Nausea Motor: Positive: Negative Musculoskeletal: Positive: Negative Neurological: Positive: Negative Psychological: Positive: Negative Is Patient Immunocompromised?: No Physical Exam Triage Information Reviewed: Yes Appearance: Well-Appearing, Well-Nourished, Pain Distress - WITH MOVEMENT OF RIGHT LEG Vital Signs: Initial Vital Signs Temp 98.2 F 05/26/18 20:41 Pulse 105 05/26/18 20:41 Resp 19 05/26/18 20:41 BP 168/101 05/26/18 20:41 Pulse Ox 97 05/26/18 20:41 Vital Signs Reviewed: Yes Eye Exam: Normal Eyes: Positive: Conjunctiva Clear ENT: Positive: Pharyngeal erythema, Nasal congestion, Nasal drainage, TMs normal Neck exam: Normal Neck: Positive: Supple Respiratory: Positive: Lungs clear, Normal breath sounds, No respiratory distress Cardiovascular: Positive: RRR Abdomen Description: Positive: Soft, Other: - Patient is tender to palpation in the right inguinal area. Abdomen itself is soft and nontender with positive bowel sounds. Testicles are nonswollen and nontender to palpation there is no scrotal mass. No abdominal rebound. Bowel Sounds: Positive: Present Male Genital Exam: Negative: Scrotum Tenderness (R), Scrotum Tenderness (L), Testicular Tenderness (R), Testicular Tenderness (L) Musculoskeletal: Positive: Strength Intact, ROM Intact Neurological Exam: Normal Neurological: Positive: Alert, Muscle Tone Normal Psychological Exam: Normal Psychological: Positive: Age Appropriate Behavior Skin Exam: Normal Throat Pain/Nasal Course/Dx - Course Course Of Treatment: We discussed viral versus bacterial infections and the role of antibiotics. The patient wishes to be on an antibiotic at this time. Patient's her right groin pain was discussed. At this time in clinic we do not have ultrasound or CT with contrast. I discussed with the patient the best imaging modality would be ultrasound or CT with contrast. I recommended evaluation in the emergency department. Also he seen surgery for any can follow -up with surgery. At this time by history and exam patient does not have a bowel obstruction as she is eating and drinking and his bowels been working fine. Also I do not believe the pain is from a testicular source as his testicular exam was normal. - Differential Dx/Diagnosis Provider Diagnosis: Upper respiratory tract infection, Cough, Right groin pain Discharge - Sign-Out/Discharge Documenting (check all that apply): Patient Departure All imaging exams completed and their final reports reviewed: No Studies - Discharge Plan Condition: Stable Disposition: HOME Prescriptions: Amoxicillin PO (*) [Amoxicillin 875 MG (*)] 875 mg PO BID #18 tab Benzonatate CAP* [Tessalon 100 MG CAP*] 100 mg PO TID PRN #20 cap PRN Reason: Cough Patient Education Materials: Upper Respiratory Infection (ED), Abdominal Pain ( ED), Acute Cough (ED), Groin Pain (ED) Referrals: Calli Dooley PA [Primary Care Provider] - Additional Instructions: FOLLOW UP WITH YOUR PRIMARY CARE DOCTOR IF YOUR COUGH NOT COMPLETELY IMPROVED. FOLLOW UP WITH SURGERY, DR HAMM, FOR YOUR ABDOMINAL PAIN. GO TO THE EMERGENCY DEPARTMENT FOR ANY WORSENING OF YOUR CONDITION; PAIN, FEVER , VOMITING OR QUESTIONS OR CONCERNS. - Billing Disposition and Condition Condition: STABLE Disposition: Home
== END 2018-05-26 21:32 | disposition home or self-care (01) ==
LOC: UCCORT 20:21
DX: J06.9 Acute upper respiratory infection, unspecified (principal); R05 Cough; R10.31 Right lower quadrant pain; Z88.5 Allergy status to narcotic agent; E11.9 Type 2 diabetes mellitus without complications; Z87.891 Personal history of nicotine dependence
CPT/HCPCS: 99213; A9270-GY; G0463

== ENCOUNTER 2018-06-29 15:01 | Emergency (ER) | payer OTHER ==
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
[2018-06-29] MEDS ORDERED: Albuterol 2.5 MG/3 ML NEB.SOL* (0.083%) INH ONE (15:27)
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
[2018-06-29 15:52] LABS: Influenza A Molecular NEGATIVE (Negative); Influenza B Molecular NEGATIVE (Negative)
[2018-06-29 15:59] VITALS: BP 149/112
== END 2018-06-29 16:20 | disposition home or self-care (01) ==
LOC: UCEAST 15:01
DX: J20.9 Acute bronchitis, unspecified (principal); Z88.5 Allergy status to narcotic agent; Z87.891 Personal history of nicotine dependence
CPT/HCPCS: 71046; 99213; G0463

== ENCOUNTER → 2018-09-04 18:05 | Emergency (ER) | payer OTHER ==
[~2018-09-04 18:05] MED LIST changes: -Acetaminophen TAB* 325 MG PO ONE; -Buffered Lidocaine 0.9% SYRIN* 5 ML/SYR SYRINGE INTRADERM ONE; -Dexamethasone IV* 4 MG/ML 1 ML (4 MG) IV SLOW PU ONE; -Metoclopramide IV* 5 MG/ML 2 ML VIAL IV SLOW PU ONE; +oxyCODONE/Acetamin 5/325 MG* TAB PO ONE
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
[2018-09-04 21:19] VITALS: BP 166/88
== END | disposition home or self-care (01) ==
LOC: ED 18:05
DX: M54.5 Low back pain (principal); G89.29 Other chronic pain; Z87.891 Personal history of nicotine dependence; E11.9 Type 2 diabetes mellitus without complications; Z88.5 Allergy status to narcotic agent; E66.01 Morbid (severe) obesity due to excess calories
CPT/HCPCS: 99282; A9270-GY

== ENCOUNTER 2018-09-19 13:57 | Emergency (ER) | payer OTHER ==
--- NOTE | 2018-09-19 14:18 | ED ---
Back Pain - HPI Summary HPI Summary: Pt. is a 38 y.o male who presents to the ER for right low back pain that started last night. Pt. notes he has a hx of back pain but pain today is different. Pt. states he fell asleep in a seated position on the couch last night and woke up with right low back pain that radiates down right leg. Denies numbness, tingling or weakness. Pt. states pain is too great to move right leg. Pt. denies fever, CP, SOB, abd. pain, V/D, hematuria, dysuria, bowel or bladder incontinence or retention. Pt. took motrin last night without improvement. Pt. came in via EMS. Sxs are mild in severity. Movement makes sxs worse. Nothing makes sxs better. Past medical hx of morbid obesity and DM. Pt. seen in ED and UC for back pain numerous times last year. - History of Current Complaint Chief Complaint: EDBackInjuryPain Stated Complaint: BACK PAIN PER EMS Time Seen by Provider: 09/19/18 14:08 Hx Obtained From: Patient Pain Intensity: 9 - Allergies/Home Medications Allergies/Adverse Reactions: Allergies Allergy/AdvReac Type Severity Reaction Status Date / Time codeine Allergy Hives Verified 09/19/18 14:51 PMH/Surg Hx/FS Hx/Imm Hx Previously Healthy: Yes Endocrine/Hematology History: Reports: Hx Diabetes - type 2 Denies: Hx Thyroid Disease Cardiovascular History: Denies: Hx Hypertension, Hx Pacemaker/ICD Respiratory History: Reports: Hx Asthma - A CHILD, Hx Sleep Apnea - HAD CPAP MACHINE BUT NEVER USED IT, NO LONGER HAS IT Denies: Hx Chronic Obstructive Pulmonary Disease (COPD) GI History: Reports: Other GI Disorders - 1 MONTH HX OF UMBILICAL HERNIA, MORBID OBESITY Denies: Hx Ulcer History: Denies: Hx Renal Disease Musculoskeletal History: Reports: Other Musculoskeletal History - 1999 TORN LIGAMENTS IN LEFT KNEE Sensory History: Reports: Hx Contacts or Glasses - CONTACTS, NO GLASSES. WILL NOT WEAR CONTACTS PRE-OP. Denies: Hx Cataracts, Hx Glaucoma, Hx Hearing Aid Opthamlomology History: Reports: Hx Contacts or Glasses - CONTACTS, NO GLASSES. WILL NOT WEAR CONTACTS PRE-OP. Denies: Hx Cataracts, Hx Glaucoma Psychiatric History: Denies: Hx Panic Disorder - Surgical History Surgery Procedure, Year, and Place: APPENDECTOMY 1986 [place]. LEFT KNEE ARTHROSCOPY (REPAIR OF LIGAMENTS) 1999 [place]. Hernia repair 02/11/17. VASECTOMY 10/19/2017 Hx Anesthesia Reactions: No - Immunization History Date of Tetanus Vaccine: unknown Date of Influenza Vaccine: [email or web address] Infectious Disease History: No Infectious Disease History: Denies: Hx Clostridium Difficile, Hx Hepatitis, Hx Human Immunodeficiency Virus (HIV), Hx of Known/Suspected MRSA, Hx Shingles, Hx Tuberculosis, Hx Known/ Suspected VRE, Hx Known/Suspected VRSA, History Other Infectious Disease, Traveled Outside the [place] in Last 30 Days - Family History Known Family History: Positive: Cardiac Disease, Diabetes, Other - unable to obtain information due to patient distress and AMS - Social History Occupation: Unemployed Lives: With Family Alcohol Use: Occasionally Substance Use Type: Reports: Marijuana Substance Use Comment - Amount & Last Used: daily Hx Tobacco Use: Yes Smoking Status (MU): Former Smoker Type: Cigarettes Amount Used/How Often: 1 PPD FOR 16 YRS Length of Time of Smoking/Using Tobacco: 16 YRS Have You Smoked in the Last Year: No Review of Systems Constitutional: Negative Negative: Fever, Chills Cardiovascular: Negative Negative: Palpitations, Chest Pain Respiratory: Negative Negative: Shortness Of Breath, Cough Gastrointestinal: Negative Negative: Abdominal Pain, Vomiting, Diarrhea Genitourinary: Negative Negative: dysuria, frequency, flank pain, hematuria, incontinence Positive: Other - Right low back pain Skin: Negative Negative: Weakness, Paresthesia, Numbness All Other Systems Reviewed And Are Negative: Yes Physical Exam Triage Information Reviewed: Yes Vital Signs On Initial Exam: Initial Vitals Temp Pulse Resp BP Pulse Ox 98.3 F 107 20 144/94 97 09/19/18 14:00 09/19/18 14:00 09/19/18 14:00 09/19/18 14:00 09/19/18 14:00 Vital Signs Reviewed: Yes Appearance: Positive: Well-Appearing - Pt. lying flat in bed looking at cellphone when I walked into room. SO present. Skin: Positive: Warm, Dry Head/Face: Positive: Normal Head/Face Inspection Eyes: Positive: Normal, EOMI Neck: Positive: Supple Respiratory/Lung Sounds: Positive: Clear to Auscultation, Breath Sounds Present Cardiovascular: Positive: Normal, RRR Abdomen Description: Positive: Other: - Morbidly obese. Soft and nontender. Neurological: Positive: Normal, CN Intact II-III Psychiatric: Positive: Affect/Mood Appropriate Diagnostics - Vital Signs Vital Signs Temp Pulse Resp BP Pulse Ox 09/19/18 14:00 98.3 F 107 20 144/94 97 - Laboratory Lab Statement: Any lab studies that have been ordered have been reviewed, and results considered in the medical decision making process. Back Pain Course/Dx - Course Course Of Treatment: Pt. presenting for atraumatic right side back pain that radiates into right leg. Afebrile. No neuro deficits or evidence of cauda equina syndrome. Pt. requesting xrays. Pt. given a dose of toradol and percocet. Xrays negative for acute findings, per radiology. 1640: Pt. lying on left side in NAD. Pt. states pain has mildly improved but still present. Will attempt to ambulate. 1705: Pt. ambulatory in hallway with his cane. Will dc home with a few tabs of lortab and naproxen. Close f.u with PCP. Apply warm compresses. Return to ER if sxs change or worsen. COAL [employer]AMMER reviewed and no red flags noted. - Diagnoses Differential Diagnosis/HQI/PQRI: Positive: Compressive Cord Syndrome, Epidural Abscess, Herniated Disc, Strain, Sprain Provider Diagnoses: Lumbar strain Discharge - Sign-Out/Discharge Documenting (check all that apply): Patient Departure Patient Received Moderate/Deep Sedation with Procedure: No - Discharge Plan Condition: Improved Disposition: HOME Prescriptions: Hydrocodone/Acetaminophen [Hydrocodone-Acetamin 5-325 mg] 1 each PO Q6H #8 tablet MDD 4 Naproxen [Naproxen 500 mg tab] 500 mg PO BID #20 tablet Patient Education Materials: Low Back Strain (ED) Referrals: Calli Dooley PA [Primary Care Provider] - Additional Instructions: Call PCP tomorrow for a close follow up appointment Medication as directed Apply warm compresses Return to ER if symptoms change or worsen - Billing Disposition and Condition Condition: IMPROVED Disposition: Home
[2018-09-19] MEDS ORDERED: Ketorolac INJ* 60 MG/2 ML VIAL IM ONE (14:32)
[2018-09-19] MEDS ORDERED: oxyCODONE/Acetamin 5/325 MG* TAB PO ONE (14:32)
[2018-09-19 17:22] VITALS: BP 163/100
== END 2018-09-19 17:21 | disposition home or self-care (01) ==
LOC: ED 13:57
DX: S39.012A Strain of muscle, fascia and tendon of lower back, initial encounter (principal); X58.XXXA Exposure to other specified factors, initial encounter; Y92.019 Unspecified place in single-family (private) house as the place of occurrence of the external cause; E11.9 Type 2 diabetes mellitus without complications; Z88.5 Allergy status to narcotic agent; Z87.891 Personal history of nicotine dependence
CPT/HCPCS: 72110; 96372; 99282; A9270-GY; J1885

== ENCOUNTER 2019-01-10 21:28 | Emergency (ER) | payer OTHER ==
[2019-01-10 21:54] VITALS: BP 125/89
--- NOTE | 2019-01-10 22:17 | UC ---
Knee Pain HPI - HPI Summary HPI Summary: 38 yo diabetic with obesity and thoracic spine pain, with one week history of progressive pain in the right knee, with limited ability to bear weight. He states that the knee has buckled a half dozen times today, and it caused him to fall when he put weight on it today. No apparent swellig. He has been using naproxen 500mg several times per day without relief of pain. 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 - History of Current Complaint Chief Complaint: UCLowerExtremity Stated Complaint: KNEE COMPLAINT Time Seen by Provider: 01/10/19 21:43 Hx Obtained From: Patient Onset/Duration: Gradual Onset, Lasting Days - 5, Worse Since - today Severity Initially: Moderate Severity Currently: Moderate Pain Intensity: 8 Character: Sharp, Aching, Throbbing Aggravating Factor(s): Movement, Weight Bearing, Prolonged Standing, Stairs Alleviating Factor(s): Cold, OTC Meds Associated Signs And Symptoms: Positive: Negative. Negative: Swelling, Redness , Bruising Able to Bear Weight: No - Allergies/Home Medications Allergies/Adverse Reactions: Allergies Allergy/AdvReac Type Severity Reaction Status Date / Time codeine Allergy Hives Verified 09/19/18 14:51 Home Medications: Home Medications Aspirin [Aspirin EC] 81 mg PO 01/10/19 [History] Atorvastatin* [Lipitor 40 MG*] 40 mg 01/10/19 [History] Insulin Lispro [Admelog Solostar] 12 ml 01/10/19 [History] PMH/Surg Hx/FS Hx/Imm Hx - Additional Past Medical History Additional PMH: obesity Endocrine History: Diabetes Cardiovascular History: Other - on statin - Surgical History Surgical History: Yes Surgery Procedure, Year, and Place: APPENDECTOMY 1986 [place]. LEFT KNEE ARTHROSCOPY (REPAIR OF LIGAMENTS) 1999 [place]. Hernia repair 02/11/17. VASECTOMY 10/19/2017 - Family History Known Family History: Positive: Cardiac Disease, Diabetes, Other - unable to obtain information due to patient distress and AMS - Social History Occupation: Employed Full-time Lives: With Family Alcohol Use: Occasionally Substance Use Type: Marijuana Substance Use Comment - Amount & Last Used: daily Smoking Status (MU): Former Smoker Type: Cigarettes Amount Used/How Often: 1 PPD FOR 16 YRS Length of Time of Smoking/Using Tobacco: 16 YRS Have You Smoked in the Last Year: No When Did the Patient Quit Smoking/Using Tobacco: 2012 - Immunization History Most Recent Tetanus Shot: 2012 Review of Systems All Other Systems Reviewed And Are Negative: Yes Constitutional: Positive: Fatigue Motor: Positive: Decreased ROM, Weakness Musculoskeletal: Positive: Arthralgia. Negative: Calf Tenderness Is Patient Immunocompromised?: No Physical Exam Triage Information Reviewed: Yes Appearance: Ill-Appearing, Pain Distress - moderate, Obese Vital Signs: Initial Vital Signs Temp 99.7 F 01/10/19 21:47 Pulse 106 01/10/19 21:47 Resp 16 01/10/19 21:47 BP 125/89 01/10/19 21:47 Pulse Ox 97 01/10/19 21:47 ENT: Positive: Normal ENT inspection Respiratory: Positive: Lungs clear, Normal breath sounds, No respiratory distress Cardiovascular: Positive: RRR, No Murmur Musculoskeletal Exam: Other - extreme tenderness to palpation/light touch along the joint line, the patella, the popliteal fossa. No calf pain, no bony pain in the tibia. Musculoskeletal: Positive: No Edema, ROM Limited @ - right knee flexion limited to 45 degrees of active flexion. Neurological: Positive: Alert, Muscle Tone Normal Skin Exam: Normal Diagnostics - Radiology No standard instances Radiology Interpretation Completed By: ED Physician Summary of Radiographic Findings: Normal joint space, no effusion. Knee Pain Course/Dx - Course Course Of Treatment: Pain control using hydrocodone. I-stop reviewed ref nomber [id number] with past hydrocodone and tramadol given for control of msk pain, last was September 2018. Continue use of cane for support, and follow up with orthopedics as arranged. - Differential Dx/Diagnosis Differential Diagnosis/HQI/PQRI: Sprain, Strain Provider Diagnosis: Right knee pain Discharge ED - Sign-Out/Discharge Documenting (check all that apply): Patient Departure All imaging exams completed and their final reports reviewed: No - Discharge Plan Condition: Stable Disposition: HOME Prescriptions: HYDROcodone/ACETAMIN 5-325 MG* [[place] 5-325 TAB*] 2 tab PO Q8H PRN #18 tab MDD 6 PRN Reason: Pain - Severe Patient Education Materials: Knee Pain (ED) Referrals: Calli Dooley PA [Primary Care Provider] - Danny Salgado MD [Medical Doctor] - Additional Instructions: The cause of your knee pain is not clear. If you have increasing painm fever or swelling, please return to the emergency room. Plan follow up with Dr. Salgado as arranged for the 13 of January. Ice the knee every few hours, and continue to use support of the cane as you have been. I - Billing Disposition and Condition Condition: STABLE Disposition: Home
[2019-01-10] MEDS ORDERED: HYDROcodone/ACETAMIN 5-325 MG* 1 TAB PO ONE (22:49)
--- NOTE | 2019-01-11 08:49 | UC ---
- Progress Note Progress Note: Radiology report reviewed. Joint effusion. Soft tissue swelling without fracture. Pt already scheduled for ortho f/u. No change in mgmt. Course/Dx - Diagnoses Provider Diagnoses: Right knee pain Discharge ED - Sign-Out/Discharge Documenting (check all that apply): Post-Discharge Follow Up All imaging exams completed and their final reports reviewed: Yes - Discharge Plan Condition: Stable Disposition: HOME Prescriptions: HYDROcodone/ACETAMIN 5-325 MG* [[place] 5-325 TAB*] 2 tab PO Q8H PRN #18 tab MDD 6 PRN Reason: Pain - Severe Patient Education Materials: Knee Pain (ED) Referrals: Calli Dooley PA [Primary Care Provider] - Danny Salgado MD [Medical Doctor] - Additional Instructions: The cause of your knee pain is not clear. If you have increasing painm fever or swelling, please return to the emergency room. Plan follow up with Dr. Salgado as arranged for the 13 of January. Ice the knee every few hours, and continue to use support of the cane as you have been. I - Billing Disposition and Condition Condition: STABLE Disposition: Home
== END 2019-01-10 23:04 | disposition home or self-care (01) ==
LOC: UCEAST 21:28
DX: M25.561 Pain in right knee (principal); E11.9 Type 2 diabetes mellitus without complications; E66.9 Obesity, unspecified; Z79.4 Long term (current) use of insulin; Z87.891 Personal history of nicotine dependence
CPT/HCPCS: 99212; G0463

== ENCOUNTER 2022-11-25 01:11 | Observation (INO) ==
[2022-11-25 02:00] LABS: ABS Eosinophils 0.2 10^3/uL (0.0-0.5); ABS Lymphocytes 3.2 10^3/uL (1.0-4.8); ABS Monocytes 0.5 10^3/uL (0.0-1.1); ABS Neutrophils 2.9 10^3/uL (1.5-7.6); ABS Nucleated RBC 0.04 10^3/ul; Hematocrit 44.5 % (38-53); Lymphocyte % 46.9 %; Mean Corpuscular Hemoglobin 29.2 pg (27-33); Mean Corpuscular Volume 81.3 fL (80-97); Mean Platelet Volume 7.9 fL (7.5-11.2); Nucleated Red Blood Cells % 0.5 /100 WBC (0.0-0.4); Platelet Count 228 10^3/uL (150-450); Red Blood Count 5.48 10^6/uL (4.06-5.63); Red Cell Distribution Width 13.1 % (12-17); White Blood Count 6.9 10^3/uL (3.6-10.2)
[2022-11-25 02:15] LABS: ALT 33 U/L (7-52); Albumin 3.9 g/dL (3.2-5.2); Albumin/Globulin Ratio 1.4 (1-3); Alkaline Phosphatase 75 U/L (35-149); Blood Urea Nitrogen 18 mg/dL (6-24); CO2 Carbon Dioxide 27 mmol/L (22-32); Chloride 96 mmol/L (101-111); Creatinine, Serum 1.12 mg/dL (0.67-1.17); Globulin 2.7 g/dL (2-4); Glucose 349 mg/dL (70-100); Sodium 130 mmol/L (135-145); Total Protein 6.6 g/dL (6.4-8.9); eGFR CKD-EPI 84.1 (>60)
[2022-11-25 02:17] LABS: Anion Gap 7 mmol/L (2-16)
[2022-11-25 02:21] LABS: High Sens Troponin Baseline 7 pg/mL (<20)
[2022-11-25 02:57] LABS: High Sensitivity Troponin 1 Hr 8 pg/mL (<20)
[2022-11-25 03:37] LABS: Potassium, Whole Blood 4.5 mmol/L (3.4-4.5)
[2022-11-25] MEDS ORDERED: Ondansetron 4 mg VIAL 2 MG/ML 2 ml VIAL IV PRN (05:22)
[2022-11-25] MEDS ORDERED: Dextrose 50% Syringe 50 ml 25 GM/50 ML SYRINGE IV PUSH PRN (05:24)
[2022-11-25] MEDS: Enoxaparin 40 MG/0.4 ML SYR SUBCUT SCH (05:39)
[2022-11-25] MEDS ORDERED: Sulfur Hexaflouride MICROSPHR 25 MG VIAL ONE (08:28)
[2022-11-25] MEDS: CMCS: Fenofibrate 145 mg TAB (NF) PO SCH (08:48)
[2022-11-25 09:05] LABS: Amylase 26 U/L (29-103); Lipase 59 U/L (11.0-82.0)
[2022-11-25 09:46] LABS: Magnesium 1.8 mg/dL (1.9-2.7)
[2022-11-25] MEDS ORDERED: Magnesium Sulfate IV 1GM/100ML 1 GM/100 ML BAG IV ONE (10:11)
[2022-11-25] MEDS: Insulin GLARGINE 100 un/ml 10 ml VIAL SUBCUT SCH (13:28)
[2022-11-26 06:23] LABS: Calcium 8.7 mg/dL (8.6-10.3); Creatinine, Serum 1.05 mg/dL (0.67-1.17); Magnesium 1.9 mg/dL (1.9-2.7); Potassium 4.3 mmol/L (3.5-5.0); eGFR CKD-EPI 90.9 (>60)
[2022-11-26] MEDS: Enoxaparin 40 MG/0.4 ML SYR SUBCUT SCH (06:30)
[2022-11-26] MEDS ORDERED: Aminophylline 25 MG/ML VIAL ONE (08:37)
[2022-11-26] MEDS ORDERED: Regadenoson 0.4 MG/5 ML SYRINGE ONE (08:37)
[2022-11-26] MEDS: Insulin GLARGINE 100 un/ml 10 ml VIAL SUBCUT SCH (10:45)
[2022-11-26] MEDS: CMCS: Fenofibrate 145 mg TAB (NF) PO SCH (11:02)
[2022-11-26 14:17] VITALS: BP 124/71
== END 2022-11-26 16:10 | disposition home or self-care (01) ==
LOC: ED 01:11 → EDHOLD 01:11 → SUATTDRO 05:22 → MEDTELE 18:47
PROVIDERS: ADMIT Hospitalist; ATTEND Internal Medicine